=== PATIENT | female | born 1985 | race Caucasian/White ===

== ENCOUNTER 2019-04-06 09:24 | Emergency (ER) | payer OTHER ==
--- OUTSIDE RECORDS SUMMARY | 2019-04-06 09:33 | XMS REPORT | Clinical Summary ---
:1985 Author Organization [facility] Address [address] [place] [id number] Care Team Providers Name Role Phone Luna Diaz MD Primary Care Provider Allergies Active Allergy Reactions Severity Noted Date Comments Amoxicillin Hives 10/03/2014 Penicillins Hives 03/16/2016 Medications Medication Sig Dispensed Refills Start End Date Status Date doxepin (SINEQUAN) 50 1 po hs X 3 90 capsule 11 Active MG capsule days, then 9 2 po hs X 3 days, then 3 po hs hydrochlorothiazide 0 Active (HYDRODIURIL) 25 MG 9 tablet omeprazole (PRILOSEC) Take 40 mg 1 Active 40 MG capsule by mouth 9 daily Senna 8.6 MG Oral Take 1 30 each 2 03/21/19 Active Tablet tablet by 9 20 mouth nightly Gabapentin 600 MG Oral Take 1 90 tablet 2 04/11/19 Active Tablet (NEURONTIN) tablet by 9 20 mouth Three times daily buPROPion HCl ER (XL) Take 1 30 tablet 2 04/11/19 Active 300 MG Oral Tablet tablet by 9 20 Extended Release 24 mouth every Hour (WELLBUTRIN XL) morning Ondansetron 8 MG Oral 0 Active Tablet Disintegrating 9 (ZOFRAN-ODT) cloNIDine HCl 0.1 MG 0 Active Oral Tablet (CATAPRES) [address] 1.5 10 Film 0 03/01/19 Active HCl-Naloxone HCl 4-1 MG Film under 0 20 Sublingual Film the tongue (SUBOXONE) daily for 7 days, Max Daily Dose: 1.5 Film hydrOXYzine (ATARAX) 50 Take 1 90 tablet 2 02/05/20 MG tablet tablet by 9 19 mouth Three times daily as needed for Itching or Anxiety cloNIDine HCl 0.1 MG Take 1 30 tablet 1 02/10/19 Oral Tablet (CATAPRES) tablet by 9 20 mouth every evening Bup[address] 1 14 Film 0 02/08/19 Discontinued HCl-Naloxone HCl 4-1 MG Film under 9 20 (Reorder) Sublingual Film the tongue (SUBOXONE) daily , Max Daily Dose: [address] 1.5 11 Film 0 02/15/19 Discontinued HCl-Naloxone HCl 4-1 MG Film under 0 20 (Reorder) Sublingual Film the tongue (SUBOXONE) daily for 7 days, Max Daily Dose: 1.[address] 1.5 11 Film 0 02/22/19 Discontinued HCl-Naloxone HCl 4-1 MG Film under 0 20 (Reorder) Sublingual Film the tongue (SUBOXONE) daily for 7 days, Max Daily Dose: 1.5 Film Active Problems Problem Noted Date Somatic symptom disorder, persistent, moderate 01/18/2019 Last Assessment & Plan: Recurrent nausea and vomiting, with borderline diagnosis of gastroparesis ( normal emptying at 30, 60, 120, and 180 minutes, but delayed at 3 or 4 hours. Has had some improvement with adjustment in diet, but had difficult time this week. Emotional state likely contributing to symptoms, which then provided patient with a rationale to use, ostensibly to relieve symptoms. Benzodiazepine misuse 12/18/2018 Last Assessment & Plan: Has been prescribed benzodiazepines for several years, and has been though inpatient rehab in the past to detoxify from them. Was last prescribed clonazepam 0.5 mg 20 tabs in August 2018, but reported use 19 days ago. She is committed to refraining from all controlled substances aside from prescribed buprenorphine, though does not trust herself to not use at this point, if the opportunity resented itself. Marijuana use, episodic 11/30/2018 Overview: Long standing use/abuse, rationalized as self-medicating chronic nausea. Used both combustible and vaping methods of inhalation. Last Assessment & Plan: Used coworker's THC vape pen this week, in the setting of emotional upset. Feels she has improved significantly since starting treatment in that she regretted use immediately, and stopped use at that point. Discussed people, laces and things: someone offering drugs to help her feel better is NOT a friend, particularly someone who knows she is in recovery. Will continue to go to 12-Step meetings, which she acknowledges is helpful. Is beginning to develop a bright line for cannabinoids in the same way the she has for pills in the past several months, and cigarettes several years ago. Drug induced constipation 11/16/2018 Last Assessment & Plan: Reports longstanding constipations, but it has worsened sicne starting buprenorphine maintenance. Constipation may definitely be contributing to increased nausea. Since she will not be seeing GI for some time, scripts for Miralax and senna sent to patient's pharmacy. 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 Has overused them in the past, and has not had them prescribed since February 2018. Admits to use when she has access to them. Benign essential HTN 06/12/2018 Gastroesophageal reflux disease without esophagitis 06/12/2018 Opioid dependence on agonist therapy 05/11/2016 Last Assessment & Plan: Doing better. Is beginning to develop a recovery mindset through attending 12- Step meetings. Attends Buprenorphine Maintenance Psychotherapy Group consistently. No signs of diversion of buprenorphine. D iscussed THC relapse, and will have an additional individual session (with MATTHEW Mosley) next week. Will continue buprenorphine/naloxone at current dose. Will return in one week for medication management visit.Patient understands that the Buprenorphine Maintenance Service is and abstinence-only servic e, with exception of prescribed buprenorphine-naloxone. Cessation of use of any other addictive substances, including alcohol, nicotine and cannabis, is expected. Will send urine collected in office today will be sent to the lab to confirm screens for drugs of abuse (DABU), buprenorphine and alcohol metabolites. Borderline personality disorder 03/16/2016 Last Assessment & Plan: Was triggered by dealing with a coworker's resentment at work. [place] have to learn how to handle negative emotions without using substances to bury them. Has not been able to connect with therapist in the past few weeks due to scheduling issues and provider illness. Next appointment scheduled for January 26. ADHD (attention deficit hyperactivity disorder), combined type 10/05/2014 Nausea and vomiting 10/04/2014 Last Assessment & Plan: Continues to have nausea and vomiting, which causes her to idealize the benefit of marijuana use. Is not complaining of it at today's visit, however. Is aware that she must find other ways to contend with or avoid triggering this nausea, and to break the association between smoking cannabis and relief of nausea. Major depressive disorder, recurrent episode with anxious distress 10/04/2014 Last Assessment & Plan: Feeling increasingly anxious due to her ongoing nausea. Had been feeling well with bupropion and doxepin. Will attempt to improve her GI symptoms and reassess mood at the next visit. Resolved Problems Problem Noted Date Resolved Date Less than 8 weeks gestation of 03/17/2016 06/12/2018 Anorexia 10/04/2014 06/12/2018 Weight loss 10/04/2014 06/12/2018 Right arm cellulitis 10/04/2014 06/12/2018 Severe protein-calorie malnutrition 10/04/2014 06/12/2018 Intractable nausea and vomiting 10/04/2014 06/12/2018 History of tobacco use 02/14/2013 11/30/2018 Overview: Overview: Quit 2008 Adjustment disorder with anxiety 03/03/2010 06/12/2018 Overview: Overview: 12/2009 Alexus Daniel, Ph.D Clinical Psychologist. Couples therapy every week in [facility] 2010 Failed lexapro 2006, celexa 2008. Encounters Date Type Specialty Care Team Description 11/26/2018 Hospital Encounter Radiology Intractable vomiting with nausea, unspecified vomiting type from Last 3 Months Family History Medical History Relation Name Comments Bipolar disorder Sister Relation Name Status Comments Sister Social History Tobacco Use Types Packs/Day Years Used Date Former Smoker 0 Smokeless Tobacco: Never Used Tobacco Cessation: Counseling Given: Yes Alcohol Use Drinks/Week oz/Week Comments Not Currently rarely Sex Assigned at Date Recorded Not on file Job Start Date Occupation Industry Not on file Not on file Not on file Travel History Travel Start Travel End No recent travel history available. Last Filed Vital Signs Vital Sign Reading Time Taken Comments Blood Pressure 130/80 02/22/2019 10:28 AM EST Pulse 92 02/22/2019 10:41 AM EST Temperature 36 02/22/2019 10:28 AM EST C (96.8 F) Respiratory Rate 18 02/22/2019 10:28 AM EST Oxygen Saturation 97% 02/22/2019 10:28 AM EST Inhaled Oxygen Concentration - - Weight 87.5 kg (193 lb) 02/22/2019 10:28 AM EST Height 162.6 cm (5' 4") 11/05/2018 6:07 AM EDT Body Mass Index 33.13 11/05/2018 6:07 AM EDT Plan of Treatment Date Type Specialty Care Team Description 07/24/2019 Office Visit Gastroenterology ArifSergio MD [address] [facility] [address] [place] [address] [phone] Health Maintenance Due Date Last Done Comments MMR Vaccines (1 of 1 - Standard 02/05/1985 series) Varicella Vaccines (1 of 2 - 02/05/1985 2-dose childhood series) DTaP,Tdap,and Td Vaccines (1 - 02/05/1991 Tdap) HIV Screening 02/05/1997 Cervical Cancer Screening 5 years 02/05/2005 Influenza Vaccine 11/06/2018 Pneumococcal Vaccine: 65+ Years (1 02/05/2049 of 2 - PCV13) HIB Vaccines Aged Out No longer eligible based on patient's age to complete this topic Hepatitis A Vaccines Aged Out No longer eligible based on patient's age to complete this topic Hepatitis B Vaccines Aged Out No longer eligible based on patient's age to complete this topic IPV Vaccines Aged Out No longer eligible based on patient's age to complete this topic Pneumococcal Vaccine: Pediatrics Aged Out No longer eligible based on (0 to 5 Years) and At-Risk patient's age to complete this Patients (6 to 64 Years) topic Procedures Procedure Name Priority Date/Time Associated Comments Diagnosis ETHYL GLUCURONIDE Routine 02/22/2019 10:25 Results for this SCREEN WITH REFLEX TO AM EST procedure are in CONFIRMATION the results section. DRUGS OF ABUSE, URINE Routine 02/22/2019 10:25 Results for this AM EST procedure are in the results section. BUPRENORPHINE URINE Routine 02/22/2019 10:25 Results for this AM EST procedure are in the results section. ETHYL GLUCURONIDE Routine 02/15/2019 10:25 Results for this SCREEN WITH REFLEX TO AM EST procedure are in CONFIRMATION the results section. DRUGS OF ABUSE, URINE Routine 02/15/2019 10:25 Results for this AM EST procedure are in the results section. BUPRENORPHINE URINE Routine 02/15/2019 10:25 Results for this AM EST procedure are in the results section. CANNABINOID CONFIRM Routine 02/08/2019 10:22 Results for this URINE ([facility]) AM EST procedure are in the results section. ETHYL GLUCURONIDE Routine 02/08/2019 10:22 Results for this SCREEN WITH REFLEX TO AM EST procedure are in CONFIRMATION the results section. DRUGS OF ABUSE, URINE Routine 02/08/2019 10:22 Results for this AM EST procedure are in the results section. BUPRENORPHINE URINE Routine 02/08/2019 10:22 Results for this AM EST procedure are in the results section. LAB RESULTS 02/05/2019 7:03 (OUTSIDE/HISTORICAL) AM EST ETHYL GLUCURONIDE Routine 01/25/2019 10:30 Results for this SCREEN WITH REFLEX TO AM EST procedure are in CONFIRMATION the results section. DRUGS OF ABUSE, URINE Routine 01/25/2019 10:30 Results for this AM EST procedure are in the results section. BUPRENORPHINE URINE Routine 01/25/2019 10:30 Results for this AM EST procedure are in the results section. CANNABINOID CONFIRM Routine 01/18/2019 10:12 Results for this URINE ([facility]) AM EST procedure are in the results section. BUPRENORPHINE Routine 01/18/2019 10:12 Results for this CONFIRMATION ([facility]) AM EST procedure are in the results section. ETHYL GLUCURONIDE Routine 01/18/2019 10:12 Results for this SCREEN WITH REFLEX TO AM EST procedure are in CONFIRMATION the results section. DRUGS OF ABUSE, URINE Routine 01/18/2019 10:12 Results for this AM EST procedure are in the results section. BUPRENORPHINE URINE Routine 01/18/2019 10:12 Results for this AM EST procedure are in the results section. CANNABINOID CONFIRM Routine 01/11/2019 10:18 Results for this URINE ([facility]) AM EST procedure are in the results section. ETHYL GLUCURONIDE Routine 01/11/2019 10:18 Results for this SCREEN WITH REFLEX TO AM EST procedure are in CONFIRMATION the results section. DRUGS OF ABUSE, URINE Routine 01/11/2019 10:18 Results for this AM EST procedure are in the results section. BUPRENORPHINE URINE Routine 01/11/2019 10:18 Results for this AM EST procedure are in the results section. FENTANYL CONFIRMATION Routine 12/28/2018 12:42 Results for this PM EST procedure are in the results section. CANNABINOID CONFIRM Routine 12/28/2018 12:42 Results for this URINE ([facility]) PM EST procedure are in the results section. BUPRENORPHINE Routine 12/28/2018 12:42 Results for this CONFIRMATION ([facility]) PM EST procedure are in the results section. ETHYL GLUCURONIDE Routine 12/28/2018 12:42 Results for this SCREEN WITH REFLEX TO PM EST procedure are in CONFIRMATION the results section. DRUGS OF ABUSE, URINE Routine 12/28/2018 12:42 Results for this PM EST procedure are in the results section. BUPRENORPHINE URINE Routine 12/28/2018 12:42 Results for this PM EST procedure are in the results section. CANNABINOID CONFIRM Routine 12/21/2018 10:18 Results for this URINE ([facility]) AM EST procedure are in the results section. BUPRENORPHINE Routine 12/21/2018 10:18 Results for this CONFIRMATION ([facility]) AM EST procedure are in the results section. ETHYL GLUCURONIDE Routine 12/21/2018 10:18 Results for this SCREEN WITH REFLEX TO AM EST procedure are in CONFIRMATION the results section. DRUGS OF ABUSE, URINE Routine 12/21/2018 10:18 Results for this AM EST procedure are in the results section. BUPRENORPHINE URINE Routine 12/21/2018 10:18 Results for this AM EST procedure are in the results section. BUPRENORPHINE Routine 12/07/2018 10:13 Results for this CONFIRMATION ([facility]) AM EDT procedure are in the results section. ETHYL GLUCURONIDE Routine 12/07/2018 10:13 Results for this SCREEN WITH REFLEX TO AM EDT procedure are in CONFIRMATION the results section. BUPRENORPHINE URINE Routine 12/07/2018 10:13 Results for this SCREEN W/REFLEX TO AM EDT procedure are in CONFIRMATION the results section. DRUGS OF ABUSE, URINE Routine 12/07/2018 10:13 Results for this AM EDT procedure are in the results section. BUPRENORPHINE Routine 11/30/2018 10:12 Results for this CONFIRMATION ([facility]) AM EDT procedure are in the results section. CANNABINOID CONFIRM Routine 11/30/2018 10:12 Results for this URINE ([facility]) AM EDT procedure are in the results section. ETHYL GLUCURONIDE Routine 11/30/2018 10:12 Results for this SCREEN WITH REFLEX TO AM EDT procedure are in CONFIRMATION the results section. BUPRENORPHINE URINE Routine 11/30/2018 10:12 Results for this SCREEN W/REFLEX TO AM EDT procedure are in CONFIRMATION the results section. DRUGS OF ABUSE, URINE Routine 11/30/2018 10:12 Results for this AM EDT procedure are in the results section. NM GASTRIC EMPTYING Routine 11/26/2018 3:38 Intractable Results for this STUDY 77751 PM EDT vomiting with procedure are in nausea, unspecified the results vomiting type section. from Last 3 Months Results Ethyl Glucuronide scr with reflex to confirm (02/22/2019 10:25 AM EST)Only the most recent of10 resultswithin the time period is included. Ethyl Glucuronide Negative [id number] [facility] scr urine Comment: ng/mL (NOTE) This test was developed and its performance characteristics determined by [facility]. It has not been cleared or approved by the Food and Drug Administration. Performed At: RN [facility] [address] [place], [place] [id number] Aldo Negron MD Ph:[phone] Specimen Urine Performing Organization Address City/[facility] Phone Number [facility] [address] [place] [address] [phone] Buprenorphine Urine (02/22/2019 10:25 AM EST)Only the most recent of8 resultswithin the time period is included. Buprenorphine Urine Positive (A) Negative [facility] Comment: Cutoff 10 Med [facility] Clin (NOTE) Pathology Positive results above the cutoff of 10 ng/mL are presumptive and unconfirmed. Confirmatory testing can be ordered at [facility] at [phone] within 5 days of collection. Specimen Urine Performing Organization Address [facility] Phone Number [facility] PATHOLOGY [address] [place] [address] [facility] [address] [place] [address] Pathology Drugs Of Abuse, Urine (02/22/2019 10:25 AM EST)Only the most recent of10 resultswithin the time period is included. Amphetamine Negative Negative [facility] Cutoff 1000 [facility] Pathology Benzodiazepine Negative Negative [facility] Cutoff 300 [facility] Pathology Cannabinoids Urine Positive (A) Negative [facility] Comment: Cutoff 50 [facility] (NOTE) Pathology Positive results are presumptive and unconfirmed;confirmatory testing can be ordered at the [facility] at [phone] or [facility] at [phone] within 5 days of collection. Cocaine Negative Negative [facility] Cutoff 300 [facility] Pathology Methadone (Dolophine) Negative Negative [facility] Cutoff 300 [facility] Pathology Opiates Negative Negative [facility] Cutoff [address] [facility] Pathology Oxycodone Negative Negative [facility] Cutoff 100 [facility] Pathology Fentanyl Negative Negative [facility] Cutoff 1 [facility] Pathology Drug Interpretation (NOTE) [facility] Comment: Med [facility] Results below the indicated cutoff (ng/mL), are reported as Pathology "Negative." Note: for medical purposes only; not valid for legal or employment testing. Specimen Urine Performing Organization Address City/[facility] Phone Number [facility] PATHOLOGY [address] [place] [address] [facility] [address] [place] [phone] Pathology Cannibinoid confirm urine (02/08/2019 10:22 AM EST)Only the most recent of6 resultswithin the time period is included. Cannabinoid Positive (A) [facility] Comment: Univ Clin Pathology (NOTE) Carboxy THC GC/MS Conf 10 ng/mL Cutoff=10 01 Written Authorization Written Authorization Written Authorization Received. Authorization received from ORIGINAL REQUEST 02-14-2019 Logged by Issac Mustafa Performed At: [facility] [address] [place] [id number] Aldo Negron MD Ph:[phone] Specimen Urine Performing Organization Address [facility] Phone Number [facility] PATHOLOGY [address] [place] [address] [facility] [address] [place] [phone] Pathology LAB RESULTS (OUTSIDE/HISTORICAL) (02/05/2019 7:03 AM EST) Narrative Performed At Buprenorphine Confirmation (01/18/2019 10:12 AM EST)Only the most recent of5 resultswithin the time period is included. Buprenorphine Positive (A) [facility] Comment: Med [facility] Clin (NOTE) Pathology Confirmation performed by Mass Spectrometry Buprenorphine Urine Positive (A) [facility] Pathology Buprenorphine Ur 17 Cutoff=10 [facility] Confirm ng/mL Med [facility] Clin Pathology Norbuprenorphine Urine Positive (A) [facility] Pathology Norbuprenorphine Ur 106 Cutoff=10 [facility] Conf Comment: ng/mL [facility] (NOTE) Pathology Performed At: [facility] O[facility] RTP [address] [facility], [place] [id number] Jim Shay PhD Ph:[phone] Specimen Urine Performing Organization Address [facility] Cent[facility]ode Phone Number [facility] PATHOLOGY [address] [place] [address] [phone] [facility] Univ Clin [address] [place] [address] Pathology FENTANYL CONFIRMATION (12/28/2018 12:42 PM EST) Fentanyl/Norfenta Negative [id number] [facility] nyl Comment: Univ Clin (NOTE) Pathology Test includes Fentanyl and Norfentanyl Please Note: Comment [facility] Comment: Univ Clin (NOTE) Pathology Drug-test results should be interpreted in the context of clinical information. Patient metabolic variables, specific drug chemistry, and specimen characteristics can affect test outcome. Technical consultation is available if a test result is inconsistent with an expected outcome. ([email or web address] or call toll-free [phone]) Performed At: [facility] [address] [place], [place] [id number] Aldo Negron MD Ph:[phone] Specimen Urine Performing Organization Address [facility] [place] [facility] Phone Number [facility] CL[facility] PATHOLOGY [address] [place] [address] [facility] Univ Clin [address] [place] [address] Pathology Buprenorphine urine screen with reflex confirm (12/07/2018 10:13 AM EDT)Only the most recent of2 resultswithin the time period is included. Buprenorphine Sceen See Final Results Cutoff=[address] urine Comment: ng/mL (NOTE) Performed At: [facility] [address] [place], [place] [id number] lAdo Negron MD Ph:[phone] Specimen Urine Performing Organization Address [facility] Cent[facility]ode Phone Number [facility] [address] [place] [address] PATHOLOGY [facility] [place] [address] [place] [phone] NM Gastric Emptying Study (11/26/2018 3:38 PM EDT) Specimen Impressions Performed At IMPRESSION: [facility] RADIOLOGY Rapid gastric emptying at 30 minutes, 1, 2 and 3 hours and delayed 4 hour gastric emptying. Narrative Performed At [facility] RAD[facility] INDICATION: vomiting TECHNIQUE: The patient was given a meal of 158 grams of solid food and 4 ounces of liquid, with 2.0 mCi of Tc 99m labeled sulfur colloid. Sequential images centered on the stomach were obtained immediat red following the meal, then at 30 minutes, 1, 2, 3, and 4 hours following the meal. All imaging was performed in the upright position. This is a solid phase study. COMPARISON: CT abdomen pelvis with contrast dated 10/03/2014. FINDINGS: The geometric mean percent remaining was: 55%, at 30 minutes 36%, at 1 hour 27%, at 2 hours 16%, at 3 hours 15%, at 4 hours The upper normal limit for gastric retention is 90%, 60%, 30% and 10% at 1 hour , 2 hours, 3 hours, and 4 hours respectively. The lower normal limit is 70% and 30% at 30 minutes and one-hour respectively. Procedure Note Interface, Received Via [employer] [facility] - 11/26/2018 10:02 PM EDT INDICATION: vomiting TECHNIQUE: The patient was given a meal of 158 grams of solid food and 4 ounces of liquid, with 2.0 mCi of Tc 99m labeled sulfur colloid. Sequential images centered on the stomach were obtained immediately following the meal, then at 30 minutes, 1, 2, 3, and 4 hours following the meal. All imaging was performed in the upright position. This is a solid phase study. COMPARISON: CT abdomen pelvis with contrast dated 10/03/2014. FINDINGS: The geometric mean percent remaining was: 55%, at 30 minutes 36%, at 1 hour 27%, at 2 hours 16%, at 3 hours 15%, at 4 hours The upper normal limit for gastric retention is 90%, 60%, 30% and 10% at 1 hour , 2 hours, 3 hours, and 4 hours respectively. The lower normal limit is 70% and 30% at 30 minutes and one-hour respectively. IMPRESSION: Rapid gastric emptying at 30 minutes, 1, 2 and 3 hours and delayed 4 hour gastric emptying. 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
--- OUTSIDE RECORDS SUMMARY | 2019-04-06 09:33 | XMS REPORT | Continuity of Care Document ---
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 Onset: 04/25/2014 Moderate major depression, single episode Federica Barlow MD Onset: 02/08/2018 Anxiety disorder Federica Barlow MD Onset: 02/08/2018 Adjustment disorder with anxious mood Federica Barlow MD Onset: 02/08/2018 Cannabis abuse, uncomplicated Federica Barlow MD Onset: 05/16/2018 Nondependent alcohol abuse in remission Federica Barlow MD Onset: 05/16/2018 Joint pain Federica Barlow MD Onset: 05/16/2018 Essential hypertension Luna Diaz MD Onset: 04/19/2018 Hypothyroidism Luna Diaz MD Onset: 04/19/2018 Social History Type Date Description Comments Sex Unknown Cigarette Use Denies Cigarette Use ETOH Use Denies alcohol use Recreational Drug Use Denies Drug Use occasional pot Tobacco Use Start: Unknown Patient has never smoked Smoking Status Reviewed: 10/24/17 Patient has never smoked Exercise Type/Frequency Exercises sporadically Allergies, Adverse Reactions, Alerts Active Allergies Reaction Severity Comments Date Amoxicillin hives 04/25/2014 Cyclobenzaprine hallucinations 04/05/2018 Medications Active Medications SIG Qnty Indications Ordering Date Provider Clindamycin HCL 1 by mouth 20caps H66.90 Kaylee Arechiga, 03/18/2019 300mg Capsules twice a day [employer] Gabapentin 1 by mouth 90tabs Luna Diaz, 11/06/2018 600mg Tablets three times a MD day Zofran 1 po q 6 hour 30tabs F43.0 Kaylee WallaceEl Arechiga, 10/25/2018 4mg Tablets prn nausea [employer]OR Ibuprofen take 1 tablet 30tabs N83.201 Luna Diaz, 08/15/2018 800mg Tablets by mouth three MD times daily with food as needed for pain Bupropion Hydrochloride ER take 1 tablet 30tabs Federica Barlow MD 07/05/2018 (XL) by mouth in 300mg Tablets ER 24HR the morning Hydrochlorothiazide 1 by mouth 90tabs I10 Federica Barlow MD 04/19/2018 25mg Tablets every day Doxepin HCL 3 caps by Unknown 50mg Capsules mouth at bedtime Buprenorphine 1 & 1/2 strip Unknown Hydrochloride/Naloxone under tongue Hydrochloride every morning 4-1mg Film History Medications Doxepin HCL take one capsule by Luna Diaz MD 03/18/2019 - 150mg mouth at bedtime 03/18/2019 Capsules Doxepin HCL Luna Diaz MD 11/06/2018 - 100mg 03/18/2019 Capsules Medications Administered in Office Medication SIG Qnty Indications Ordering Provider Date Psychiatric Diag Eval W/Medical Federica Barlow MD 02/08/2018 Service Injection Immunizations CPT Code Status Date Vaccine Lot # [id number] Given 03/11/2019 Tetanus, Diphtheria Toxoids/Acellular Pertussis [id number] Vaccine 7 Or > [id number] Given 11/06/2018 Influenza Virus Vaccine, Quad, Preservative [id number] Free 6mo & up Vital Signs Date Vital Result Comment 03/18/2019 3:40pm Weight 193.00 lb Weight 87.545 kg BP Systolic 128 mmHg BP Diastolic 80 mmHg Heart Rate 95 /min Body Temperature 98.1 F Respiratory Rate 19 /min O2 % BldC Oximetry 97 % 11/06/2018 2:39pm Weight 160.00 lb Weight 72.576 kg BMI (Body Mass Index) 27.5 kg/m2 BP Systolic 128 mmHg BP Diastolic 66 mmHg Heart Rate 86 /min Body Temperature 98.5 F Respiratory Rate 16 /min Height 64 inches 5'4" Height in cm's 162.6 cm O2 % BldC Oximetry 99 % Results Test Acquired Date Facility Test Result H/L Range Note Comprehensive Panel 10/25/2018 [facility] Sodium 137 mmol/L 136 -145 [phone] Potassium 3.9 mmol/L 3.5-5.2 Chloride 103 mmol/L 100-108 Co2 25 mmol/L 21-32 Glucose 119 mg/dL High 70-100 BUN 14 mg/dL 7-21 Creatinine 0.8 mg/dL 0.6-1.3 1 Calcium 10.3 mg/dL 8.5-10.8 GFR >60 T Bili 0.4 mg/dL 0.0-1.2 T Protein 7.4 gm/dL 6.4-8.2 Albumin 4.7 gm/dL 3.4-4.8 Alk Phos 96 U/L 40-150 Alt (SGPT) 13 U/L 0-55 Ast (Sgot) 15 U/L 5-37 CBC W/Auto Differential 10/25/2018 [facility] WBC 7.6 K/uL 4.8- 10.8 [phone] RBC 5.39 M/uL 4.20-5.40 Hemoglobin 14.2 gm/dL 12.0-16.0 Hematocrit 42.8 % 36.0-48.0 MCV 79.4 fL Low 80.0-100.0 MCHC 33.1 % 30.0-36.5 MCH 26.3 pg Low 27.0-34.0 RDW 13.5 % 11.0-15.0 Platelet 391 K/uL 130-450 MPV 7.3 fL 6.0-12.0 NE% 73 % 37-80 Ly% 21 % 10-50 Mo% 5 % 0-12 Eo% 1 % <=8 Ba% 0 % <=3 NE# 5.5 K/uL 1.8-8.6 Lymph# 1.6 K/uL 0.5-5.0 Stanton# 0.4 K/uL 0.0-1.3 Eos# 0.1 K/uL 0.0-0.9 Baso# 0.0 K/ul 0.0-0.3 Laboratory test 10/25/2018 [facility] TSH 0.49 uIU/mL 0.34- 4.82 finding [phone] Folate & B-12 10/25/2018 [facility] Folate 8.6 ng/mL 3.1-20.0 [phone] Vitamin B12 778 pg/mL 230-1180 1 Normal Kidney Function or Mild Disease - GFR >OR= 60 Chronic Kidney Disease - GFR 15-59 Renal Failure - GFR < 15 GFR not calculated on patients under 18 years of age. Procedures Description No Information Available Medical Devices Description No Information Available Encounters Type Date Location Provider Dx Diagnosis Office Visit 03/18/2019 [facility] Kaylee Arechiga, H66.90 Otitis media, 4:00p Care [employer]OR unspecified, unspecified ear J06.9 Acute upper respiratory infection, unspecified Office Visit 11/06/2018 2:30p [facility] Luna R11.10 Vomiting, Latosha Diaz MD unspecified F43.21 Adjustment disorder with depressed mood Z23 Encounter for immunization Office Visit 10/25/2018 2:40p [facility] Kaylee Arechiga, F43.0 Acute stress Care [employer]US T[employer]OR reaction N83.201 Unspecified ovarian cyst, right side F10.11 Alcohol abuse, in remission F32.1 Major depressive disorder, single episode, moderate F41.9 Anxiety disorder, unspecified R11.0 Nausea F43.21 Adjustment disorder with depressed mood F45.8 Other somatoform disorders Assessments Date Code Description Provider 03/18/2019 H66.90 Otitis media, unspecified, unspecified ear Kaylee Arechiga, [facility] 03/18/2019 J06.9 Acute upper respiratory infection, unspecified Kaylee Arechiga, [facility] 03/11/2019 Z23 Encounter for immunization Apc Nurse Schedule 11/06/2018 R11.10 Vomiting, unspecified Luna Diaz MD 11/06/2018 F43.21 Adjustment disorder with depressed mood Luna Diaz MD 11/06/2018 Z23 Encounter for immunization Luna Diaz MD 10/25/2018 F43.0 Acute stress reaction Apc and Endo Draw 10/25/2018 F43.0 Acute stress reaction Kaylee Arechiga, [employer] 10/25/2018 N83.201 Unspecified ovarian cyst, right side Apc and Endo Draw 10/25/2018 N83.201 Unspecified ovarian cyst, right side Kaylee Arechiga, [employer] 10/25/2018 F10.11 Alcohol abuse, in remission Apc and Endo Draw 10/25/2018 F10.11 Alcohol abuse, in remission Kaylee Arechiga, [employer] 10/25/2018 F32.1 Major depressive disorder, single episode, Apc and Endo Draw moderate 10/25/2018 F32.1 Major depressive disorder, single episode, Kaylee Arechiga, [employer] moderate 10/25/2018 F41.9 Anxiety disorder, unspecified Apc and Endo Draw 10/25/2018 F41.9 Anxiety disorder, unspecified Kaylee Arechiga, [employer] 10/25/2018 R11.0 Nausea Apc and Endo Draw 10/25/2018 R11.0 Nausea Kaylee Arechiga, [employer] 10/25/2018 F43.21 Adjustment disorder with depressed mood Apc and Endo Draw 10/25/2018 F43.21 Adjustment disorder with depressed mood Kaylee Arechiga, [employer] 10/25/2018 F45.8 Other somatoform disorders Apc and Endo Draw 10/25/2018 F45.8 Other somatoform disorders Kaylee Braxtono, [facility] Plan of Treatment 03/18/2019 - Kaylee Arechiga, FNPH66.90 Otitis media, unspecified, unspecified earJ06.9 Acute upper respiratory infection, unspecifiedNew Medication: Clindamycin HCL 300 mg Functional Status Description No Information Available Mental Status Description No Information Available Referrals Refer to Dr Reason for Referral Status Appt Date Guido Castillo MD Scheduled 07/24/2019 [address] [place] [phone] Federica Barlow MD Closed 11/29/2018 [address] [facility], [address] [place] [id number] [phone] Emilia Howard MD Closed [address] [address], [address] [place] [phone] Kieran Miller M.D. Closed [address] [facility], [address] [place] [address] [phone]
[2019-04-06 09:48] VITALS: BP 125/74
--- NOTE | 2019-04-06 10:59 | UC ---
Throat Pain/Nasal Tani HPI - HPI Summary HPI Summary: 34-year-old woman comes in with chief complaint of sinus pressure and left ear pain. Patient recently treated with an antibiotic for a left ear infection. Patient does have a history of a cholesteatoma on the left that was surgically removed. She sees ENT once a year to check on that. She continues to have sinus congestion and sinus pain. She has not tried any nasal sprays. - History of Current Complaint Chief Complaint: UCGeneralIllness Stated Complaint: EAR PAIN SINUS ISSUE Time Seen by Provider: 04/06/19 10:44 Hx Last Menstrual Period: 03/08/19 Pain Intensity: 5 - Allergies/Home Medications Allergies/Adverse Reactions: Allergies Allergy/AdvReac Type Severity Reaction Status Date / Time Penicillins Allergy Rash Verified 04/06/19 09:49 Home Medications: Home Medications Ibuprofen [Advil] 200 mg PO PRN 11/29/11 [History Confirmed 02/03/14] Multiple Vitamins W/ Minerals [Multi For Her] 1 cap PO DAILY 11/29/11 [History Confirmed 04/06/19] buPROPion HCl [Wellbutrin Xl] 300 mg PO DAILY 02/03/14 [History Confirmed ] Buprenorphine HCl/Naloxone HCl [Buprenorp-Nalox 4-1 mg Sl Film] 6 mg PO DAILY [History Confirmed 04/06/19] DOXYcycline CAP(*) [DOXYcycline 100MG CAP(*)] 100 mg PO BID #20 cap 04/06/19 [Rx ] Doxepin HCl 1 tab PO DAILY 04/06/19 [History Confirmed 04/06/19] Fluticasone NASAL SPRAY 50MCG* [Flonase NASAL SPRAY 50MCG*] 2 spray BOTH NARES DAILY #1 btl 04/06/19 [Rx] Gabapentin 600 mg PO TID 04/06/19 [History Confirmed 04/06/19] Ofloxacin 0.3% (Ear Drop)* [Floxin 0.3% OTIC.MARIANA (Ear Drop)] 5 drop LEFT EAR BID #1 btl 04/06/19 [Rx] cloNIDine TAB* [Catapres 0.1 MG TAB*] 1 tab PO DAILY 04/06/19 [History Confirmed 04/06/19] hydrOXYzine HCL TAB* [Atarax TAB 50 MG *] 1 tab PO DAILY 04/06/19 [History Confirmed 04/06/19] PMH/Surg Hx/FS Hx/Imm Hx Previously Healthy: Yes - left cholesteatoma - Surgical History Surgical History: Yes Surgery Procedure, Year, and Place: 2008; APPY 2007. bilateral wrist. L ear surgery-CHOLESTEATOMA. GALLBLADDER. LEFT BREAST BIOPSY X2 - Social History Alcohol Use: None Substance Use Type: None Smoking Status (MU): Former Smoker When Did the Patient Quit Smoking/Using Tobacco: 6 years ago Review of Systems All Other Systems Reviewed And Are Negative: Yes Constitutional: Positive: Other - see hpi Skin: Positive: Negative Eyes: Positive: Negative ENT: Positive: Ear Ache, Sinus Congestion Respiratory: Positive: Negative Cardiovascular: Positive: Negative Gastrointestinal: Positive: Negative Motor: Positive: Negative Neurovascular: Positive: Negative Musculoskeletal: Positive: Negative Neurological/Mental Status: Positive: Negative Psychological: Positive: Negative Is Patient Immunocompromised?: No Physical Exam Triage Information Reviewed: Yes Appearance: Well-Appearing, No Pain Distress, Well-Nourished Vital Signs: Initial Vital Signs Temp 98.8 F 04/06/19 09:45 Pulse 105 04/06/19 09:45 Resp 18 04/06/19 09:45 BP 125/74 04/06/19 09:45 Pulse Ox 99 04/06/19 09:45 Vital Signs Reviewed: Yes Eye Exam: Normal Eyes: Positive: Conjunctiva Clear ENT: Positive: Pharynx normal, Nasal congestion, Other - Right TM appears normal. Left TM is obscured by cerumen. Neck: Positive: Supple Respiratory: Positive: Lungs clear, Normal breath sounds, No respiratory distress Cardiovascular: Positive: RRR Musculoskeletal: Positive: Strength Intact, ROM Intact Neurological: Positive: Alert Psychological: Positive: Age Appropriate Behavior Skin Exam: Normal Throat Pain/Nasal Course/Dx - Differential Dx/Diagnosis Provider Diagnosis: Sinusitis, Impacted cerumen, left ear, Left ear pain, Left otitis externa Discharge ED - Sign-Out/Discharge Documenting (check all that apply): Patient Departure All imaging exams completed and their final reports reviewed: No Studies - Discharge Plan Condition: Stable Disposition: HOME Prescriptions: DOXYcycline CAP(*) [DOXYcycline 100MG CAP(*)] 100 mg PO BID #20 cap Fluticasone NASAL SPRAY 50MCG* [Flonase NASAL SPRAY 50MCG*] 2 spray BOTH NARES DAILY #1 btl Ofloxacin 0.3% (Ear Drop)* [Floxin 0.3% OTIC.MARIANA (Ear Drop)] 5 drop LEFT EAR BID #1 btl Patient Education Materials: Sinusitis (ED), Cerumen Impaction (ED), Earache ( ED), Otitis Externa (ED) Referrals: Kaylee Chester [Primary Care Provider] - Bairon Pardo MD [Medical Doctor] - Additional Instructions: FOLLOW UP WITH ENT THIS WEEK. GET REEVALUATED SOONER IF NOT IMPROVED OR WORSE OR ANY QUESTIONS OR CONCERNS. - Billing Disposition and Condition Condition: STABLE Disposition: Home
== END 2019-04-06 11:29 | disposition home or self-care (01) ==
LOC: UCEAST 09:24
DX: H60.92 Unspecified otitis externa, left ear (principal); H61.22 Impacted cerumen, left ear; H92.02 Otalgia, left ear; J32.9 Chronic sinusitis, unspecified; Z87.891 Personal history of nicotine dependence; Z88.0 Allergy status to penicillin
CPT/HCPCS: 99213; G0463